=== PATIENT | female | born 1975 | race African-American/Black ===

== ENCOUNTER 2020-04-29 19:38 | Emergency (ER) | payer SELFPAY ==
[2020-04-29 20:04] LABS: Bilirubin Negative (Negative); Blood, Urine Large (Negative); Clarity Cloudy (Clear); Glucose, Urine (Dipstick) Negative (Negative); Ketone, Urine Negative (Negative); Leukocyte Moderate (Negative); Nitrite Positive (Negative); Protein, Urine (Dipstick) > or equal to 300 mg/dL (Neg-Trace); Specific Gravity, Urine 1.025 (1.005-1.030); Urobilinogen 0.2 mg/dL (Less than 2); pH, Urine 5.5 (5.0-9.0)
[2020-04-29 20:09] LABS: WBC/HPF Greater than 50 HPF (0-3)
[2020-04-29 20:10] LABS: Bacteria/HPF 2+ HPF (None Seen); Mucous/LPF 2+ LPF (<2+)
[2020-04-29] MEDS ORDERED: Levofloxacin 500 mg/D5W 100 ml Premix Bag ONE (20:20)
[2020-04-29] MEDS ORDERED: Ketorolac Tromethamine 30 MG/ML VIAL ONE (20:20)
[2020-04-29] MEDS ORDERED: Sodium Chloride 0.9% 1,000 ML ONE (20:20)
[2020-04-29] MEDS ORDERED: Prochlorperazine 10 MG/2 ML VIAL ONE (20:20)
[2020-04-29 20:43] LABS: #Basophils 0.1 thou/uL (0.0-0.2); #Lymphocytes 3.9 thou/uL (1.20-3.40); #Neutrophils 11.1 thou/uL (1.40-6.50); %Basophils 0.8 % (0.0-1.0); %Eosinophils 0.2 % (0.0-10.0); %Monocytes 6.1 % (0.0-10.0); Hemoglobin 12.1 g/dL (12.0-16.0); Mean Corpuscular HGB CONC 33.5 g/dL (32.0-36.0); Mean Corpuscular Hemoglobin 29.4 pg (27.0-31.0); Mean Corpuscular Volume 87.9 fL (78.0-98.0); Mean Platelet Volume 7.1 fL (7.4-10.4); Platelet Count 316 thou/uL (130-400); RBC Distribution Width 11.8 % (11.5-14.5); Red Blood Cell (RBC) Count 4.12 mill/uL (4.20-5.40); White Blood Cell (WBC) Count 16.1 thou/uL (4.8-10.8)
[2020-04-29 20:57] LABS: ALT (SGPT) 9 U/L (8-55); AST (SGOT) 15 U/L (5-34); Albumin 4.5 g/dL (3.5-5.0); Alkaline Phosphatase 86 U/L (40-110); Anion Gap 16 mmol/L (10-20); BUN (Urea Nitrogen) 8 mg/dL (7.0-18.7); Bilirubin, Total 1.1 mg/dL (0.2-1.2); Calc. Creatinine Clearance 0 mL/min (70-130); Calcium 9.4 mg/dL (7.8-10.44); Carbon Dioxide 26 mmol/L (22-29); Chloride 101 mmol/L (98-107); Globulin 3.4 g/dL (2.4-3.5); Glucose 104 mg/dL (70-105); Potassium 3.3 mmol/L (3.5-5.1); Protein, Total 7.9 g/dL (6.0-8.3); Sodium 140 mmol/L (136-145)
[2020-04-30 21:57] LABS: SARS-CoV-2 PCR by NAA Not Detected (NotDetected)
== END 2020-04-29 22:45 | disposition home or self-care (01) ==
LOC: MADERS 19:38
DX: N12 Tubulo-interstitial nephritis, not specified as acute or chronic (principal); Z20.822 Contact with and (suspected) exposure to COVID-19; J45.909 Unspecified asthma, uncomplicated
CPT/HCPCS: 80053; 81003; 81015; 85025; 87040; 87077; 87086; 87186; 87635; 96365; 96375; J0780; J1885; J1956; J7050; U0003; U0005

== ENCOUNTER 2021-01-16 07:59 | Emergency (ER) | payer OTHER ==
[2021-01-16] MEDS ORDERED: Albuterol 200 PUFF (6.7GM INHALER) ONE (08:57)
[2021-01-16] MEDS ORDERED: Dexamethasone 4 MG TAB ONE (08:57)
== END 2021-01-16 09:13 | disposition home or self-care (01) ==
LOC: MADERS 07:59
DX: B34.9 Viral infection, unspecified (principal); J45.901 Unspecified asthma with (acute) exacerbation; F17.210 Nicotine dependence, cigarettes, uncomplicated
CPT/HCPCS: 99284; J8540

== ENCOUNTER 2021-08-29 16:59 | Emergency (ER) | payer MEDICAID, OTHER, SELFPAY ==
[2021-08-30 00:32] LABS: SARS-CoV-2 NAA Rapid Test Not Detected (NotDetected)
[2021-08-30 00:49] LABS: Bilirubin Negative (Negative); Blood, Urine Trace (Negative); Clarity Clear (Clear); Glucose, Urine (Dipstick) Negative (Negative); Ketone, Urine Negative (Negative); Leukocyte Negative (Negative); Nitrite Negative (Negative); Protein, Urine (Dipstick) Negative (Neg-Trace); Urobilinogen 0.2 mg/dL (Less than 2)
[2021-08-30 00:59] LABS: Bacteria/HPF Rare-Few HPF (None Seen); Mucous/LPF 1+ LPF (<2+); RBC/HPF 0-3 HPF (0-3); Squamous Epithelial 0-3 HPF (0-3); Transitional Epithelial None Seen HPF (None Seen); WBC/HPF 0-3 HPF (0-3)
== END 2021-08-29 18:25 | disposition left against medical advice (07) ==
LOC: MADERS 16:59
DX: Z53.21 Procedure and treatment not carried out due to patient leaving prior to being seen by health care provider (principal)
CPT/HCPCS: 81003; 81015; 84484; 93005